=== PATIENT | female | born 1935 | race Caucasian/White ===

== ENCOUNTER → 2017-11-21 | Outpatient (CLI) | payer MEDICARE, OTHER ==
[~2017-11-21] MED LIST: ASPIRIN81 M2 PO; CARAFATE 11 GM/10 M1 PO; CARVEDILOL12.5 MG PO; LOVASTATIN 20 M20 MG PO; OMEPRAZOLE40 MG PO; PROTONIX40 M1 PO; QUINU10 PD PO; VITAMIN D PO
== END ==
LOC: M.RAD 11-14 11:59
DX: Z12.31 Encounter for screening mammogram for malignant neoplasm of breast (principal); M81.0 Age-related osteoporosis without current pathological fracture; Z78.0 Asymptomatic menopausal state

== ENCOUNTER → 2018-11-26 | Outpatient (CLI) | payer MEDICARE, OTHER | LOC: M.RAD 10:03 | DX: Z12.31 Encounter for screening mammogram for malignant neoplasm of breast (principal) ==

== ENCOUNTER → 2018-12-04 | Outpatient (CLI) | payer MEDICARE, OTHER | LOC: M.RAD 11-28 09:24 | DX: R92.8 Other abnormal and inconclusive findings on diagnostic imaging of breast (principal); Z85.3 Personal history of malignant neoplasm of breast ==

== ENCOUNTER → 2018-12-10 | Outpatient (CLI) | payer MEDICARE, OTHER ==
--- NOTE | 2018-12-13 11:08 | PATH ---
[address] [address] PATHOLOGY RPT PROCEDURE Name: PAULO LEGER Room: [facility] Jace#: [id number] Admission: 12/10/18 Date of : 35 Discharge: Report #: [id number] Path Case #: [id number] [facility] Accession Number: [id number] . 01 Material submitted: . RIGHT BREAST BIOPSY . 01 Clinical history: . Right breast stereotactic biopsy for calcifications . 02 Diagnosis: Right breast calcifications, stereotactic biopsy: - Benign breast tissue with vaguely nodular fibrosis in association with coarse stromal calcifications, cholesterol granuloma formation and moderate chronic inflammation, negative for atypia. - Medial calcification of blood vessel. See comment. LBQ/12/12/2018 . 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 . Reviewed with Dr. Naresh Avendano who agrees with the diagnosis. (FLORESITA/db; 12/12/2018) . 02 Electronically signed: . Arden Vargas MD, Pathologist NPI- [id number] . 01 Gross description: . Received in formalin labeled "Paulo Leger, right breast calcifications," are multiple needle cores of yellow-burns fibrofatty tissue measuring 4.2 x 3.7 x 0.3 cm in aggregate dimensions. The specimen is submitted entirely in cassettes A1 through A3. The cold ischemic time is 13 minutes. The total formalin fixation time is 31 hours and 12 minutes. (DAC; 12/11/2018) XDC/XDC . 02 Pathologist provided ICD-10: N60.31, N61.0 . 02 CPT . 034861 Specimen Comment: A courtesy copy of [place] [address] PATHOLOGY RPT PROCEDURE Name: PAULO LEGER AMBER Room: [facility] Jace#: [id number] Admission: 12/10/18 Date of : 35 Discharge: Report #: [id number] Path Case #: [id number] Specimen Comment: [phone], , , . Specimen Comment: Report sent to ,DR MAKSIM OWENS / PRACHI GUAJARDO Specimen Comment: A duplicate report has been generated due to demographic updates. Performed at: [address] [id number] [facility] [address], [place] [id number] MD Kar Alford MD Phone: [phone] Performed at: 02 [facility] [address], [place], [place] [id number] MD Arden Vargas MD Phone: [phone]
== END | disposition home or self-care (01) ==
LOC: M.RAD 10:23
DX: N60.31 Fibrosclerosis of right breast (principal); N61.0 Mastitis without abscess; R92.1 Mammographic calcification found on diagnostic imaging of breast; Z79.82 Long term (current) use of aspirin; Z79.899 Other long term (current) drug therapy; Z98.890 Other specified postprocedural states

== ENCOUNTER → 2019-07-22 | Outpatient (CLI) | payer MEDICARE, OTHER | LOC: M.RAD 10:04 | DX: Z08 Encounter for follow-up examination after completed treatment for malignant neoplasm (principal) ==

== ENCOUNTER → 2019-11-27 | Outpatient (CLI) | payer MEDICARE, OTHER | LOC: M.RAD 10:40 | DX: Z12.31 Encounter for screening mammogram for malignant neoplasm of breast (principal) ==

== ENCOUNTER → 2020-02-12 | Outpatient (CLI) | payer MEDICARE, OTHER | LOC: M.RAD 13:30 | DX: M81.0 Age-related osteoporosis without current pathological fracture (principal) ==

== ENCOUNTER → 2020-12-04 | Outpatient (CLI) | payer MEDICARE, OTHER | LOC: M.RAD 11-27 11:00 | PROVIDERS: ATTEND Internal Medicine Hematology & Oncology | DX: Z12.31 Encounter for screening mammogram for malignant neoplasm of breast (principal) ==